=== PATIENT | female | born 1950 | race African-American/Black ===

== ENCOUNTER 2018-10-04 06:15 | Day surgery (SDC) | payer OTHER ==
[2018-10-01 10:24] VITALS: BMI 30.2
[2018-10-04] MEDS ORDERED: ROPIVACAINE HCL 0.5% 30ML VIAL ONE (11:02)
[2018-10-04] MEDS ORDERED: MIDAZOLAM HCL 2 MG/2 ML SINGLE DOSE VIAL ONE ×2 (11:02→11:51)
[2018-10-04] MEDS ORDERED: PROPOFOL 20 ML ONE (11:51)
[2018-10-04] MEDS ORDERED: ONDANSETRON 4 MG/2 ML VIAL ONE (11:52)
[2018-10-04] MEDS ORDERED: ceFAZolin SODIUM 1 GM VIAL ONE (11:52)
[2018-10-04] MEDS ORDERED: DEXAMETHASONE SOD PHOSPHATE 4 MG/1 ML VIAL ONE (11:52)
[2018-10-04 14:21] VITALS: TEMP 97.9
[2018-10-04] MEDS ORDERED: ONDANSETRON 4 MG/2 ML VIAL IVPUSH PRN (14:33)
[2018-10-04] MEDS ORDERED: PROMETHAZINE HCL 25 MG/1 ML VIAL IVPB PRN (14:33)
[2018-10-04 14:58] VITALS: BP 113/60; PULSE 68
--- NOTE | 2018-10-05 07:25 | OP ---
DATE OF OPERATION: 10/04/2018 PREOPERATIVE DIAGNOSIS: Impingement to the left shoulder with rotator cuff tear. POSTOPERATIVE DIAGNOSIS: Impingement from the lateral acromion and coracoacromial ligament adhesions within the joint, impingement from lateral clavicle including the distal articular surface, hypertrophic synovium, inflamed bursal tissue, tearing of the rotator cuff tear, and glenoid labral tear. PROCEDURE: Shoulder decompression of subacromial space with partial acromioplasty and release and resection of coracoacromial ligament, lysis and resection of adhesions, distal claviculectomy including the distal articular surface, partial synovectomy with extensive debridement, debridement of inflamed bursal tissue, debridement of rotator cuff, which was probed and found to be partial thickness , and partial glenoid labral resection. SURGEON: Franklin De Leon MD EXECUTIVE DIRECTOR [employer]: Oliver Jimenez. ANESTHESIOLOGIST: Dr. Negro. ANESTHESIA: Regional with general anesthesia was performed. THE PROCEDURE: Consisted of the patient being brought into the operating room and gently transferred from the stretcher to the OR table with all bony prominences well padded. The left shoulder was prepared and draped in sterile fashion. The patient was given intravenous antibiotics and copious irrigation throughout the procedure to minimize the risk for infection. A complete [id number]-alternative discussion was conducted with the patient, which was inclusive of, but not limited to, infection, bleeding, , paralysis, increased pain, and need for repeat surgery. The patient asked questions, understood the procedure, and desired to proceed with surgical treatment. Following sterile preparation and draping of the left shoulder, the anterior posterolateral portal was used to introduce the arthroscope and arthroscopic instruments. It should be noted that the patient had had an appropriate time- out prior to initiation of the surgery, which was inclusive of, but not limited to, site of surgery, type of surgery, anesthesiologist, and surgeon. Following the time- out and sterile preparation and draping of the patient, the patient had been placed in the [id number] lateral decubitus position with all bony structures well padded. Anesthesiologist protected the face and the neck throughout the procedure with the neck in good alignment to the body. Pneumatic patient support rest was used to support the patient throughout the procedure. A pillow below the legs and a pillow between the legs to protect the neurovascular structures was provided to the legs. Following this, gentle traction of 8 pounds was applied across the shoulder joint. The glenohumeral joint was evaluated. There was noted to be inflamed synovial tissue, and partial synovectomy was performed. The joint was debrided as well as adhesions to prevent expansion of the joint. These were lysed and resected. Middle glenohumeral ligament and biceps tendon were found to be intact. Glenoid labrum was found to have a tear, and partial glenoid labral resection was performed. Anterior and posterior recess were without plica, rotator cuff on the articular side was found to have a tear. This was probed and found to be partial thickness. This was debrided using a shaver and radiofrequency want. Our attention was then turned to subacromial space, and there was noted to be inflamed bursal tissue. An extensive partial bursectomy was performed. Rotator cuff on the bursal side was found to be intact. There was noted to be impingement from the outer edge of acromion, which was debrided with a high speed jessica and shaver was used to resect the wedge of bone thick anteriorly and thin posteriorly. Impingement was also found in the coracoacromial ligament which was lysed and resected. Lateral clavicle including the articular portion was creating impingement. This was debrided with a high speed jessica and shaver was used to resect that prior to the lateral clavicle creating impingement. The shoulder joint was then copiously irrigated with sterile saline irrigant. The wounds were closed with 4-0 undyed Vicryl followed by Steri-Strips, Xeroform, 4x4s, combine, Elastoplast, and a shoulder immobilizer. The patient was then gently awoken from anesthesia without incident, and transferred from the operating room to the recovery room in satisfactory condition. There were no intraoperative complications. Kathy [id number]
== END 2018-10-04 14:50 | disposition home or self-care (01) ==
LOC: FASU 06:15
PROVIDERS: ATTEND Orthopaedic Surgery
PROC: 0RNK4ZZ Release Left Shoulder Joint, Percutaneous Endoscopic Approach (ICD-10-PCS; 2018-10-04)
PROC: 0PBB4ZZ Excision of Left Clavicle, Percutaneous Endoscopic Approach (ICD-10-PCS; 2018-10-04)
PROC: 0RBK4ZZ Excision of Left Shoulder Joint, Percutaneous Endoscopic Approach (ICD-10-PCS; 2018-10-04)
PROC: 0LQ24ZZ Repair Left Shoulder Tendon, Percutaneous Endoscopic Approach (ICD-10-PCS; principal; 2018-10-04 12:05)
DX: M75.112 Incomplete rotator cuff tear or rupture of left shoulder, not specified as traumatic (principal); M75.42 Impingement syndrome of left shoulder; M75.02 Adhesive capsulitis of left shoulder; M67.212 Synovial hypertrophy, not elsewhere classified, left shoulder; M75.52 Bursitis of left shoulder; M24.112 Other articular cartilage disorders, left shoulder
CPT/HCPCS: 82962; 94760